=== PATIENT | female | born 2000 | race African-American/Black ===

== ENCOUNTER 2019-08-06 09:44 | Emergency (ER) | payer OTHER ==
[~2019-08-06] VITALS: Ht 167.6 cm; Wt 60.0 kg
[2019-08-06] MEDS ORDERED: AMOX1TAB61 PO (10:10)
--- NOTE | 2019-08-06 10:10 | PHYS DOC ---
Adult General Chief Complaint Chief Complaint: SORE THROAT HPI HPI Patient is a 19-year-old female who presents with complaint of sore throat with cough and purulent nasal drainage for the last few days. Patient states that symptoms are progressively getting worse. She denies any fever. Patient states it is getting painful to swallow. She reports pain as moderate. She states that nothing is improving her symptoms.[] Review of Systems Review of Systems Constitutional: Denies fever or chills [] HENT: Complains of congestion and sore throat [] Respiratory: Complains of cough without shortness of breath [] Cardiovascular: No additional information not addressed in HPI [] Physical Exam Physical Exam Constitutional: Well developed, well nourished, no acute distress, non-toxic appearance. [] HENT: Normocephalic, atraumatic, maxillary sinuses are tender bilaterally. Post erior pharyngeal erythema with cobblestoning is noted. [] Neck: Normal range of motion, no tenderness, supple, with cervical adenopathy. [] Cardiovascular:Heart rate regular rhythm, no murmur [] Lungs & Thorax: Bilateral breath sounds clear to auscultation [] EKG EKG [] Radiology/Procedures Radiology/Procedures [] Course & Med Decision Making Course & Med Decision Making Pertinent Labs and Imaging studies reviewed. (See chart for details) [] Dragon Disclaimer Dragon Disclaimer This electronic medical record was generated, in whole or in part, using a voice recognition dictation system. Departure Departure: Impression: Primary Impression: Acute maxillary sinusitis, unspecified Disposition: 01 HOME, SELF-CARE Condition: STABLE Referrals: PCP,NO (PCP) Patient Instructions: Sinusitis Scripts Amoxicillin/Potassium Clav (AUGMENTIN 875-125 TABLET) 1 Each Tablet 1 TAB PO BID for infection for 10 Days, #20 TAB 0 Refills Prov: MIKKI VALENTIN Jr. DO 08/06/19 Problem Qualifiers Primary Impression: Acute maxillary sinusitis, unspecified Recurrence: not specified as recurrent Qualified Codes: J01.00 - Acute maxillary sinusitis, unspecified MIKKI VALENTIN Jr. DO Aug 06, 2019 10:10
[2019-08-06 10:25] VITALS: BP 121/84
== END 2019-08-06 10:22 | disposition home or self-care (01) ==
LOC: ER 09:44
DX: J01.00 Acute maxillary sinusitis, unspecified (principal)
CPT/HCPCS: 99283